=== PATIENT | male | born 1955 | race African-American/Black ===

== ENCOUNTER 2017-05-10 23:04 | Inpatient (IN) ==
[2017-05-10] MEDS ORDERED: ASPIRIN PO STA (23:24)
[2017-05-10] MEDS ORDERED: DUONEB (A & A) ONE (23:32)
[2017-05-10] MEDS ORDERED: DUONEB (A & A) INH ONE (23:32)
[2017-05-10] MEDS ORDERED: SOLU-MEDROL 0 MG in NS 100 ML IV ONE (23:33)
[2017-05-10 23:38] LABS: MANUAL DIFF NEEDED? NO
[2017-05-10] MEDS ORDERED: SOLU-MEDROL IV ONE (23:39)
[2017-05-10 23:40] LABS: BASO% 1.2 % (0.0-0.8); EOS# 0.59 X1000 (0.0-0.7); EOS% 8.9 % (0.0-10.0); HEMATOCRIT 45.2 % (42.0-52.0); HEMOGLOBIN 15.5 g/dL (14.0-18.0); IMM GRAN# 0.01 X1000 (0.0-0.04); IMM GRAN% 0.2 % (0.0-0.5); LYMPH% 46.8 % (20.5-51.1); MCH 28.4 PG (27-31); MCHC 34.3 g/dL (33-37); MCV 82.8 FL (81-99); MONO# 0.43 X1000 (0.11-0.59); MONO% 6.5 % (1.7-9.3); MPV 10.6 FL (7.4-10.4); NEUT% 36.4 % (42.2-75.2); PLT 303 X1000 (130-400); RBC 5.46 XMIL (4.7-6.1)
[2017-05-10 23:54] LABS: INR 0.86 (0.86-1.15); PROTIME 12.4 Seconds (12.1-15.5)
[2017-05-10 23:55] LABS: PTT PL 27.5 Seconds (22.6-43.9)
[2017-05-11 00:01] LABS: BE 0.3 mmoll (-3.0-3.0); BLOOD TYPE ARTERIAL; DRAW SITE L RADIAL; METHB 1.3 % (0.0-1.5); O2(CT) 19.4 mL/dL (15.0-23.0); PCO2(98.6) 38 mmHg (35-45); PO2(98.6) 60 mmHg (60-100); SAMPLE BLOOD; SAO2 94.8 % (95.0-100.0); THB 15.1 g/dL (11.5-17.4); pH(98.6) 7.42 (7.35-7.45)
[2017-05-11 00:04] LABS: ALLEN TEST YES; MODALITY CANNULA
[2017-05-11 00:07] LABS: AGAP 10; ALBUMIN 4.3 g/dL (3.5-5.0); ALKALINE PHOSPHATASE 105 U/L (32-122); BUN 22 mg/dL (8-22); CALCIUM 9.3 mg/dL (8.8-10.2); CHLORIDE 101 mmol/L (98-107); COSMO 275; GOT 25 U/L (10-34); GPT 19 U/L (10-44); POTASSIUM 3.5 mmol/L (3.5-5.1); SODIUM 136 mmol/L (136-145); TCO2 25 mmol/L (25-35); TOTAL PROTEIN 8.4 g/dL (6.3-8.3)
[2017-05-11 00:11] LABS: CK PROFILE 320 U/L (24-204)
[2017-05-11 00:25] LABS: CK INDEX 1.2 (0.0-2.5); CK-MB 3.97 ng/mL (0.0-5.0)
[2017-05-11] MEDS ORDERED: LEVAQUIN 750 MG/D5W 750 MG/150 ML IVPB IV ONE (00:54)
[2017-05-11] MEDS ORDERED: DUONEB (A & A) INH PRN (03:49)
[2017-05-11] MEDS: DUONEB (A & A) INH SCH ×5 (07:30→23:16)
[2017-05-11] MEDS: PREDNISONE PO SCH (09:13)
[2017-05-11] MEDS: DOXYCYCLINE PO SCH ×2 (09:13→22:46)
[2017-05-11] MEDS ORDERED: SPIRIVA INH SCH (14:00)
[2017-05-11] MEDS ORDERED: ZOCOR PO SCH (21:00)
[2017-05-11] MEDS ORDERED: FLOMAX PO SCH (21:00)
[2017-05-11] MEDS: NORVASC PO SCH (22:45)
[2017-05-11] MEDS: PROSCAR PO SCH (22:45)
[2017-05-11] MEDS: VITAMIN D PO SCH (22:45)
[2017-05-11] MEDS: SINGULAIR PO SCH (22:46)
[2017-05-12] MEDS: DUONEB (A & A) INH SCH ×3 (03:12→11:47)
[2017-05-12 06:20] LABS: MANUAL DIFF NEEDED? NO
[2017-05-12 06:53] LABS: BASO% 0.2 % (0.0-0.8); EOS# 0.05 X1000 (0.0-0.7); EOS% 0.5 % (0.0-10.0); HEMATOCRIT 38.2 % (42.0-52.0); HEMOGLOBIN 13.2 g/dL (14.0-18.0); IMM GRAN# 0.02 X1000 (0.0-0.04); IMM GRAN% 0.2 % (0.0-0.5); LYMPH# 2.51 X1000 (1.2-3.4); LYMPH% 23.6 % (20.5-51.1); MCH 28.9 PG (27-31); MCHC 34.6 g/dL (33-37); MCV 83.6 FL (81-99); MONO# 0.62 X1000 (0.11-0.59); MONO% 5.8 % (1.7-9.3); MPV 10.4 FL (7.4-10.4); NEUT% 69.7 % (42.2-75.2); PLT 274 X1000 (130-400); RBC 4.57 XMIL (4.7-6.1)
[2017-05-12 07:03] LABS: AGAP 14; BUN 19 mg/dL (8-22); CALCIUM 9.2 mg/dL (8.8-10.2); CHLORIDE 103 mmol/L (98-107); COSMO 276; POTASSIUM 3.7 mmol/L (3.5-5.1); SODIUM 136 mmol/L (136-145); TCO2 20 mmol/L (25-35)
[2017-05-12] MEDS: SINGULAIR PO SCH (09:47)
[2017-05-12] MEDS: PREDNISONE PO SCH (09:47)
[2017-05-12] MEDS: VITAMIN D PO SCH (09:47)
[2017-05-12] MEDS: DOXYCYCLINE PO SCH (09:47)
[2017-05-12] MEDS: NORVASC PO SCH (09:47)
[2017-05-12] MEDS: PROSCAR PO SCH (09:47)
[2017-05-12 12:03] VITALS: BP 123/73
== END 2017-05-12 13:30 | disposition home or self-care (01) ==
LOC: P.ED 23:04 → SUATTDRO 05-11 01:53 → P.MEDSURG 05-11 01:53
PROVIDERS: ATTEND Family Medicine

== ENCOUNTER 2019-06-10 09:40 | Inpatient (IN) ==
[2019-06-10] MEDS ORDERED: DUONEB (A & A) INH ONE (09:56)
[2019-06-10 10:12] LABS: BE 2.9 mmoll (-3.0-3.0); BLOOD TYPE ARTERIAL; METHB 1.6 % (0.0-1.5); O2(CT) 19.7 mL/dL (15.0-23.0); O2HB 90.2 % (95.0-99.0); PCO2(98.6) 35 mmHg (35-45); PO2(98.6) 59 mmHg (60-100); SAMPLE BLOOD; SAO2 94.5 % (95.0-100.0); THB 15.6 g/dL (11.5-17.4); pH(98.6) 7.48 (7.35-7.45)
[2019-06-10 10:23] LABS: ALLEN TEST YES; MODALITY CANNULA
--- NOTE | 2019-06-10 10:24 | EKG Report ---
Test Performed on : 06/10/2019 09:59:45 AM Test Reason : cp Blood Pressure : / mmHG Vent. Rate : 081 BPM Atrial Rate : 081 BPM P-R Int : 112 ms QRS Dur : 082 ms QT Int : 362 ms P-R-T Axes : 076 065 -05 degrees QTc Int : 420 ms Sinus rhythm. with premature supraventricular complexes. Possible Left atrial enlargement Nonspecific ST and T wave abnormality Abnormal ECG When compared with ECG of 17-JAN-2019 08:13, premature supraventricular complexes. are now present ST no longer elevated in Anterior leads Nonspecific T wave abnormality, worse in Inferior leads Unconfirmed Result
--- NOTE | 2019-06-10 10:25 | Diag Imaging Result Doc PS360 ---
EXAM: CHEST-1 VIEW - 06/10/2019 HISTORY: cp TECHNIQUE: Portable chest COMPARISON: 01/17/2019 FINDINGS: Heart size is normal. There is some tortuosity of the thoracic aorta similar to prior. There is mild subsegmental atelectasis at the lung bases. Lungs otherwise appear essentially clear. There is no pleural effusion or pneumothorax identified. IMPRESSION: Mild basilar subsegmental atelectasis. No other evidence of acute disease. Electronically signed by Joaquin Swanson 06/10/2019 10:22 AM
[2019-06-10 10:39] LABS: INR 0.88; PROTIME 12.4 Seconds (11.0-16.0)
[2019-06-10 10:40] LABS: PTT 35.4 Seconds (22.3-41.8)
[2019-06-10 10:47] LABS: AGAP 10; ALBUMIN 4.6 g/dL (3.5-5.0); ALKALINE PHOSPHATASE 97 U/L (32-122); BUN 14 mg/dL (8-22); CHLORIDE 103 mmol/L (98-107); COSMO 277; CREATININE 0.7 mg/dL (0.7-1.2); ESTIMATED GFR > 60; GLUCOSE 142 mg/dL (70-104); GOT 17 U/L (10-34); GPT 16 U/L (10-44); POTASSIUM 3.7 mmol/L (3.5-5.1); SODIUM 137 mmol/L (136-145); TCO2 25 mmol/L (25-35)
[2019-06-10 11:10] LABS: BASO# 0.07 X1000 (0.0-0.2); BASO% 1.1 % (0.0-0.8); EOS# 0.64 X1000 (0.0-0.7); HEMATOCRIT 44.9 % (42.0-52.0); HEMOGLOBIN 14.9 g/dL (14.0-18.0); IMM GRAN# 0.01 X1000 (0.0-0.04); IMM GRAN% 0.2 % (0.0-0.5); LYMPH% 29.5 % (20.5-51.1); MCH 27.5 PG (27-31); MCHC 33.2 g/dL (33-37); MCV 82.8 FL (81-99); MONO# 0.36 X1000 (0.11-0.59); MONO% 5.6 % (1.7-9.3); MPV 10.5 FL (7.4-10.4); NEUT# 3.45 X1000 (1.4-6.5); NEUT% 53.6 % (42.2-75.2); PLT 321 X1000 (130-400); RBC 5.42 XMIL (4.7-6.1); RDW 13.6 % (11.5-14.5); WBC 6.43 X1000 (4.8-10.8)
--- NOTE | 2019-06-10 11:58 | PROVIDER DOCUMENTATION ---
This chart was entered by Rodger Srivastava Scribe, acting as scribe for Naeem Ware MD. HPI-Respiratory General - General Chief Complaint: Shortness of Breath Stated Complaint: CP SOB Time Seen by Provider: 06/10/19 09:43 Source: patient Allergies/Adverse Reactions: Patient Allergies Allergy/AdvReac Type Severity Reaction Status Date / Time Latex, Natural Rubber Allergy RASH Verified 06/10/19 10:20 shrimp Allergy HIVES Verified 06/10/19 10:20 wool Allergy HIVES Verified 06/10/19 10:20 Home Medications: Home Medication List Medication Instructions Recorded Confirmed Last Taken Type Amlodipine Besylate 10 mg PO DAILY 04/18/16 06/10/19 07/21/17 History 10 MG Finasteride [Proscar] 5 mg PO DAILY #30 tablet 05/06/16 06/10/19 07/21/17 Rx 5 MG Tamsulosin [Flomax] 0.4 mg PO QHS #30 capsule 05/06/16 06/10/19 07/21/17 Rx 0.4 MG Albuterol Sulfate [Ventolin Hfa] 1 puff IH BID 10/04/16 06/10/19 07/21/17 Hi story 1 PUFF Cholecalciferol (Vit D3) [Vitamin 1 tab PO DAILY 10/04/16 06/10/19 07/21/17 His tory D3] 1 TAB Montelukast Sodium [Singulair] 10 mg PO DAILY 10/04/16 06/10/19 07/21/17 History 10 MG Tiotropium [place] Inhaler 18 mcg IH DAILY 10/04/16 06/10/19 07/21/17 History [Spiriva] 18 MCG Acetaminophen with Codeine 1 ea PO Q8H PRN PRN #15 tab 03/03/18 06/10/19 Unknown Rx [Tylenol with Codeine #3] Budesonide/Formoterol Fumarate 10.2 gm IH BID #1 hfa.aer.ad 05/31/18 06/10/19 Unknown Rx [Symbicort 160-4.5 Mcg Inhaler] Gabapentin 300 mg PO HS 06/10/19 06/10/19 Unknown History - History of Present Illness-Resp Nature of Presenting Problem: Pt is a 63 yom who presents to the ED with a CC of shortness of breath. Pt reports he has been short of breath for approximately one week. Pt reports he uses breathing treatments at home and states he used one this morning with no relief of his symptoms. Pt also complains of chest pain and states it radiates down the left side of his body. Pt reports a hx of HTN and COPD. Pt states his symptoms worsen when the weather changes. Upon examination the pt had bilateral wheezing. Quality of Pain: reports: stabbing Severity in ED: reports: mild Onset/Duration: reports: 1 week ago Timing: reports: still present Cough Quality/Degree: reports: mild Episode Frequency: occasional episodes Current Respiratory Medication Therapy: Initiated see nurses note Associated Symptoms: reports: chest pain/soreness, cough, shortness of breath, wheezing Similar Symptoms Previously?: Yes Recently seen or treated by another doctor?: No Review of Systems - Adult - REVIEW OF SYSTEMS - ADULT Constitutional: reports: see HPI Eyes: reports: no symptoms reported Ears, Nose, Mouth & Throat: reports: no symptoms reported Cardiovascular: reports: see HPI, chest pain Respiratory: reports: see HPI, cough, shortness of breath, wheezing Gastrointestinal: reports: no symptoms reported Genitourinary: reports: no symptoms reported Musculoskeletal: reports: see HPI Integumentary: reports: no symptoms reported Neurological: reports: no symptoms reported Psychiatric: reports: no symptoms reported Endocrine: reports: no symptoms reported Hematologic/Lymphatic: reports: no symptoms reported Allergic/Immunologic: reports: no symptoms reported All Other Systems: Reviewed and Negative Past History - Adult - PAST MEDICAL HISTORY-ADULT Review of Records: reports: Old Records Reviewed, Nursing Assessment Review, Medications Reviewed, Social history reviewed & non-contributory. Major Childhood Illnesses: reports: denies history Cardiovascular: reports: HTN, hyperlipidemia Respiratory: reports: asthma, COPD Gastrointestinal: reports: cancer (prostate/colon) Obstetrical/Gynecological: reports: denies history Genitourinary: reports: denies history Musculoskeletal: reports: denies history Neurological: reports: denies history Psychiatric: reports: denies history Endocrine/Immune: reports: Diabetes Other Conditions: reports: denies history - PRIOR SURGERIES/PROCEDURES Surgical/Procedure History: reports: other (TURB/R elbow) - IMMUNIZATION STATUS Childhood Immunizations: See Nurse Assessment Flu Vaccine: See Nurse Assessment - FAMILY HISTORY Family History: reviewed, not pertinent - SOCIAL HISTORY Smoking: non-smoker, quit greater than 1 year Substance Use: alcohol Alcohol Use Frequency: occasionally Physical Exam-General - PHYSICAL EXAM-ADULT Initial Vital Signs Reviewed: Yes - CONSTITUTIONAL General Appearance: alert, mild distress - EYES Eyes: PERRL/EOMI - HEAD, EARS, NOSE, MOUTH & THROAT HENMT: moist mucous membranes - NECK Neck: non-tender, full range of motion - RESPIRATORY Respiratory: chest non-tender, no accessory muscle use, wheezing (Bilaterally), decreased rate - CARDIOVASCULAR Cardiovascular: normal peripheral pulses, regular rate, rhythm, no edema - GASTROINTESTINAL (ABDOMEN) Abdominal Exam: non tender, soft - MUSCULOSKELETAL Extremity: normal range of motion, non-tender - SKIN Integumentary: normal color, warm/dry - NEUROLOGIC Neurologic: grossly normal, no motor/sensory deficits - PSYCHIATRIC Psych/Mental Status: normal mood/affect, normal thought content, normal thought process, oriented x 3 - HEART Score HEART Score: History: Slightly Suspicious HEART Score: ECG: Non-Specific Repolarization Disturbance/LBBB/PM HEART Score: Age: 45-65 Years HEART Score: Risk Factors for Atherosclerotic Disease: 1 or 2 Risk Factors HEART Score: Troponin: < or = Normal Limit Total HEART Score:: 3 Progress - PLAN OF CARE/RESULTS Progress/Plan/Lab Results: Vital Signs - 8 hr 06/10/19 09:43 06/10/19 10:28 06/10/19 10:34 Temperature 98 F Pulse Rate 83 75 78 Respiratory Rate 20 17 24 Blood Pressure 152/85 O2 Sat by Pulse Oximetry 93 L 95 93 L 06/10/19 11:38 Temperature Pulse Rate 77 Respiratory Rate 20 Blood Pressure 170/101 O2 Sat by Pulse Oximetry 98 Laboratory Results - last 24 hr 06/10/19 06/10/19 06/10/19 09:50 10:05 10:05 WBC 6.43 RBC 5.42 Hgb 14.9 Hct 44.9 MCV 82.8 MCH 27.5 MCHC 33.2 RDW Std Deviation 13.6 Plt Count 321 MPV 10.5 H Immature Gran % (Auto) 0.2 Neut % (Auto) 53.6 Lymph % (Auto) 29.5 [place] % (Auto) 5.6 Eos % (Auto) 10.0 Baso % (Auto) 1.1 H Immature Gran # (Auto) 0.01 Neut # (Auto) 3.45 Lymph # (Auto) 1.90 [place] # (Auto) 0.36 Eos # (Auto) 0.64 Baso # (Auto) 0.07 PT INR PTT (Actin FS) Specimen Type ARTERIAL Sample Site R RADIAL pH 7.48 H pCO2 35 pO2 59 L HCO3 27.0 H Base Excess 2.9 Oxyhemoglobin 90.2 L ABG O2 Sat (Calculated) 19.7 ABG O2 Saturation 94.5 L ABG Carboxyhemoglobin 3.10 H ABG Methemoglobin 1.6 H Eduardo Test YES A-a O2 Difference 125.0 Total Hemoglobin 15.6 Lactate 1.10 Liter Flow 3.0 Blood Gas Modality CANNULA FiO2 % 32.0 Sodium Potassium Chloride Carbon Dioxide Anion Gap BUN Creatinine Estimated GFR/1.73 m2 BUN/Creatinine Ratio Glucose Calculated Osmolality Calcium Total Bilirubin AST ALT Alkaline Phosphatase Troponin T < 0.010 [id number]-Pcrmceokkdx Pept Total Protein Albumin Globulin Albumin/Globulin Ratio 06/10/19 06/10/19 06/10/19 10:05 10:05 10:05 WBC RBC Hgb Hct MCV MCH MCHC RDW Std Deviation Plt Count MPV Immature Gran % (Auto) Neut % (Auto) Lymph % (Auto) [place] % (Auto) Eos % (Auto) Baso % (Auto) Immature Gran # (Auto) Neut # (Auto) Lymph # (Auto) [place] # (Auto) Eos # (Auto) Baso # (Auto) PT 12.4 INR 0.88 PTT (Actin FS) 35.4 Specimen Type Sample Site pH pCO2 pO2 HCO3 Base Excess Oxyhemoglobin ABG O2 Sat (Calculated) ABG O2 Saturation ABG Carboxyhemoglobin ABG Methemoglobin Eduardo Test A-a O2 Difference Total Hemoglobin Lactate Liter Flow Blood Gas Modality FiO2 % Sodium 137 Potassium 3.7 Chloride 103 Carbon Dioxide 25 Anion Gap 10 BUN 14 Creatinine 0.7 Estimated GFR/1.73 m2 > 60 BUN/Creatinine Ratio 20 Glucose 142 H Calculated Osmolality 277 Calcium 10.0 Total Bilirubin 0.40 AST 17 ALT 16 Alkaline Phosphatase 97 Troponin T Ohm-K-Jqknnxefaxk Pept 74 Total Protein 7.0 Albumin 4.6 Globulin 2.0 Albumin/Globulin Ratio 2.0 Orders Category Date Time Status Cardiac Monitoring DIRECTED Care 06/10/19 10:24 Active Nursing- Obtain EKG ONCE Care 06/10/19 09:45 Active Oxygen Therapy- ED Nursing DIRECTED Care 06/10/19 10:24 Active Saline Loc NOW Care 06/10/19 10:01 Active CHEST-1 VIEW [RAD] Stat Exams 06/10/19 09:45 Completed ABG [RESP] Routine Lab 06/10/19 09:50 Completed CBC WITH ELECTRONIC DIFF [HEME] Stat Lab 06/10/19 10:05 Completed COMPREHENSIVE METABOLIC PANEL [CHEM] Stat Lab 06/10/19 10:05 Completed PRO B-NATRIURETIC PEPTIDE Stat Lab 06/10/19 10:05 Completed PT [PROTIME WITH INR] [COAG] Stat Lab 06/10/19 10:05 Completed PTT [COAG] Stat Lab 06/10/19 10:05 Completed TROPONIN T Stat Lab 06/10/19 10:05 Completed Albuterol 2.5MG/Ipratrop 0.5MG [Duoneb (A & A)] Med 06/10/19 09:56 Discontinued 3 ml INH NOW ONE Aerosol Treatments Routine Oth 06/10/19 09:56 Completed Aerosol Treatments Stat Oth 06/10/19 09:56 Completed EKG [EKG] Stat Ther 06/10/19 09:45 Draft Result Diagrams: 06/10/19 10:05 06/10/19 10:05 - EKG 1 Time of EKG reading by physician:: 09:59 EKG Read and Signed by:: Naeem Ware EKG Interpretation (*Must complete 3 of following elements*): Abnormal (Sinus rhythm with premature supraventricular complexes; Possible left atrial enlargement; Nonspecific ST and T wave abnormality) Rate: 81 Rhythm: Sinus rhythm with premature supraventricular complexes [place]: normal QRS: normal [place] Interval: normal ST Wave: non-specific ST changes - XRAY 1 XRAY: Bilateral XRAY Study: Chest Impression: See EMR Report ( EXAM: CHEST-1 VIEW - 06/10/2019 HISTORY: cp TECHNIQUE: Portable chest COMPARISON: 01/17/2019 FINDINGS: Heart size is normal. There is some tortuosity of the thoracic aorta similar to prior. There is mild subsegmental atelectasis at the lung bases. Lungs otherwise appear essentially clear. There is no pleural effusion or pneumothorax identified. IMPRESSION: Mild basilar subsegmental atelectasis. No other evidence of acute disease. Electronically signed by Joaquin Swanson 06/10/2019 10:22 AM 06/10/19 1022 Interpreting Physician: Joaquin Swanson MD Dictated Date/Time: 06/10/19 1021 cc: Naeem Ware MD; None,PCP) - CONSULTS/PCP/HOSPITALIST Notification #1 *Consult/PCP/Hospitalist*: Dr. Gruber Time Discussed: 11:50 Reason/Comments: Made aware of pt and states he will see pt in ED Consult Disposition: Will see in ED, Admit Departure - Departure Date of Disposition Decision: 06/10/19 Time of Disposition Decision: 11:56 DIAGNOSIS: COPD exacerbation, Chest pain, Hypoxia Disposition: ADMITTED INPATIENT 09 Certified Medical Emergency: Emergent Condition: Fair Additional Instructions: ED Follow Up Instructions: You have been treated by a care provider in the Emergency Department. These in structions are being provided to you so you can have an understanding of how to care for yourself upon discharge. Upon discharge from the Emergency Department, you are responsible for making arrangements for follow-up care by a physician of your choice. Take all prescribed medications as directed. Return to the Emergency Department immediately for any new or worsening symptoms. You may call the Physician Referral phone number at [phone] to obtain a list of Physicians who are taking new patients. Referrals and Follow-Ups: None,PCP [Primary Care Provider] - - Critical Care Note This patient required my direct & personal management of CC.: No Attestation - Physician/ BERRY Attestation Patient care was provided by Advanced Practice Provider:: No The physician spent face to face time with patient:: Yes Advanced Practice Provider documentation review:: Supervising physician onsite and consulted in the evaluation and care of this patient. The physician did have a face to face encounter with the patient. This chart was documented by the indicated scribe, (Rodger Srivastava, Deejay) and accurately reflects the services I performed and decisions made by me, Naeem Ware MD, as attested by the provider's signature.
[2019-06-10] MEDS ORDERED: TYLENOL PO PRN (13:10)
[2019-06-10] MEDS ORDERED: ZOFRAN IV PRN (13:10)
[2019-06-10] MEDS ORDERED: DUONEB (A & A) INH PRN (13:10)
[2019-06-10] MEDS: SOLU-MEDROL IV SCH ×2 (14:16→21:03)
[2019-06-10] MEDS: ROCEPHIN 1 GM in NS 50 ML IV SCH (14:19)
[2019-06-10] MEDS: DUONEB (A & A) INH SCH ×3 (15:01→23:58)
[2019-06-10] MEDS ORDERED: MORPHINE IV ONE (15:02)
[2019-06-10] MEDS ORDERED: FLU VACCINE IM ONE (17:00)
--- NOTE | 2019-06-10 18:02 | HISTORY AND PHYSICAL ---
CHIEF COMPLAINT: Shortness of breath, chest pain. HISTORY OF PRESENT ILLNESS: This is a 63-year-old gentleman with a history of COPD, hypertension, and prostate and colon cancer. He presents to the emergency room complaining of shortness of breath for approximately one week that has been unchanged using his home breathing treatments and medications. He also complains of left-sided chest pain that radiates down the whole left side of his body. He states this is chronic for greater than 20 years and that it gets worse when the weather changes. He denied any syncope or dizziness, any palpitations. PAST MEDICAL HISTORY: Hypertension, hyperlipidemia, asthma, COPD, prostate and colon cancer, enlarged prostate. PAST SURGICAL HISTORY: TURP and right elbow surgery. FAMILY HISTORY: He reports hypertension, COPD in his parents. SOCIAL HISTORY: He denies any illicit drug use. He does drink alcohol occasionally. He states he quit smoking in 2008. ALLERGIES: Latex, natural rubber, shrimp, and wool. HOME MEDICATIONS: A list will be obtained by the nursing staff, and once verified, will review and restart as appropriate. REVIEW OF SYSTEMS: Discussed with patient with pertinent positives stated in the HPI. He denied any syncope or dizziness, any palpitations, any nausea, vomiting, diarrhea, constipation, black or bloody vomitus or stools, any hematuria, dysuria, frequency, urgency. PHYSICAL EXAMINATION: GENERAL: This is a 63-year-old gentleman who is sitting up in the bed in no distress. VITAL SIGNS: Blood pressure is 133/88, with heart rate of 78, respirations are 22, temperature is 98.5 degrees, with O2 saturations 98 to 100 percent on 2 L nasal cannula. EYES: Pupils equal, round, react to light. EOMs are intact. Sclerae anicteric. HEENT: Head is normocephalic, atraumatic. Mucous membranes are moist. NECK: Supple with trachea midline. CARDIOVASCULAR: Regular rate and rhythm. S1 and S2 appreciated. Calves are nontender bilaterally. He has no lower extremity edema, with peripheral pulses palpable x4 extremities. No murmur. PULMONARY: Expiratory wheezes noted bilaterally with prolonged expiration. No increased work of breathing noted. Chest rises and falls symmetric with respiration. GASTROINTESTINAL: Abdomen is soft, nontender, nondistended. Bowel sounds in all 4 quadrants. GENITOURINARY: No CVA or suprapubic tenderness. NEUROLOGIC: He is alert and oriented x3. SKIN: Warm and dry. LABORATORY AND DIAGNOSTIC DATA: WBC is 6.4 with hemoglobin 14.9, hematocrit 44.9, and platelets of 321,000. Sodium is 137, potassium 3.7, BUN 14, creatinine 0.7 with a glucose of 142. Troponin is less than 0.010. ABGs, pH is 7.48 with CO2 of 35, PO2 of 59, and bicarbonate 27. This is on 3 L nasal cannula. Sputum culture is pending. Chest x-ray reveals mild basilar subsegmental atelectasis with no evidence of acute disease. ASSESSMENT: 1. Chronic obstructive pulmonary disease, acute on chronic exacerbation. 2. Chest pain. 3. Hypoxemia. 4. History of prostate and colon cancer. PLAN: The patient will be admitted to ICU, placed on telemetry for close monitoring. We will identify his home medications and continue these as appropriate. We will continue to trend cardiac enzymes, cardiac profile and troponin, repeat a CBC, CMP in the morning. Start DuoNeb q.4 hours and q.2 hours p.r.n., peak flow b.i.d. Incentive spirometer q.4 hours. For antibiotic coverage, Rocephin. Further antibiotics will be culture driven. Steroids to taper. Plan was discussed with Dr. Gruber. Further treatments pending hospital course. Dictated by IMER Duran for Cb Gruber MD cc: IMER Duran MD
[2019-06-10] MEDS ORDERED: MORPHINE IV PRN (19:01)
[2019-06-10] MEDS: SYMBICORT 160/4.5 MICROGM INHALER INH SCH (19:02)
[2019-06-10] MEDS: FLOMAX PO SCH (20:02)
[2019-06-10] MEDS: NEURONTIN PO SCH (20:02)
[2019-06-10] MEDS ORDERED: VENTOLIN HFA INH SCH (21:00)
--- NOTE | 2019-06-10 23:46 | HISTORY AND PHYSICAL ---
ADDENDUM: Patient seen and examined by myself. Full note dictated and discussed with nurse practitioner. Patient presented to the hospital with increased cough, congestion, increased shortness of breath. Notes he has had increased work of breathing for the past week or so. Symptoms continued to worsen. Therefore, he finally came to the ER. In the ER, he was noted to have blood pressure of 170/101. We are going to admit him to the hospital, place him in the ICU with a COPD exacerbation and follow. cc: Cb Gruber MD
[2019-06-11 05:10] LABS: HEMATOCRIT 43.5 % (42.0-52.0); HEMOGLOBIN 14.4 g/dL (14.0-18.0); MCH 27.4 PG (27-31); MCHC 33.1 g/dL (33-37); MCV 82.7 FL (81-99); MPV 10.7 FL (7.4-10.4); RBC 5.26 XMIL (4.7-6.1); RDW 13.5 % (11.5-14.5); WBC 5.96 X1000 (4.8-10.8)
[2019-06-11] MEDS: DUONEB (A & A) INH SCH ×6 (05:13→23:00)
[2019-06-11 05:38] LABS: AGAP 13; ALBUMIN 4.4 g/dL (3.5-5.0); ALKALINE PHOSPHATASE 89 U/L (32-122); BUN 25 mg/dL (8-22); CALCIUM 9.8 mg/dL (8.8-10.2); CHLORIDE 105 mmol/L (98-107); COSMO 281; CREATININE 1.2 mg/dL (0.7-1.2); ESTIMATED GFR > 60; GLUCOSE 150 mg/dL (70-104); GOT 13 U/L (10-34); GPT 15 U/L (10-44); SODIUM 137 mmol/L (136-145); TCO2 19 mmol/L (25-35); TOTAL PROTEIN 7.3 g/dL (6.3-8.3)
[2019-06-11] MEDS: SOLU-MEDROL IV SCH ×3 (06:37→22:15)
[2019-06-11] MEDS: SYMBICORT 160/4.5 MICROGM INHALER INH SCH ×2 (07:48→19:17)
[2019-06-11] MEDS: NORVASC PO SCH (09:25)
[2019-06-11] MEDS: SINGULAIR PO SCH (09:25)
[2019-06-11] MEDS: PROSCAR PO SCH (09:25)
[2019-06-11] MEDS: VITAMIN D PO SCH (09:25)
[2019-06-11] MEDS ORDERED: PNEUMOVAX 23 IM ONE (12:56)
[2019-06-11] MEDS: ROCEPHIN 1 GM in NS 50 ML IV SCH (13:57)
--- NOTE | 2019-06-11 17:21 | PROGRESS NOTE ---
DATE: 06/11/2019 SUBJECTIVE: Patient notes he is feeling tremendously better today than he did yesterday. Denies any fevers or chills. States the cough and shortness of breath have improved. Denies chest pain. PHYSICAL EXAMINATION: Vital Signs: Temperature 98.6 degrees, pulse 74, respiratory 20, and BP 120/64. General: Patient is in no current respiratory distress and much improved than he was yesterday. He is sitting calmly in the bed. HEENT: Normocephalic. Neck: Supple. Cardiovascular: Regular rate. No appreciable murmurs. Chest: Decreased breath sounds bilaterally but equal. Minimal if any labored breathing currently although he is sitting up resting in the bed. He does have mild wheezing which is much improved from yesterday's exam. Abdomen: Soft and nondistended. Extremities: Moves all extremities. Neurologic: No changes. ASSESSMENT: 1. Chronic obstructive pulmonary disease with exacerbation. 2. Acute hypoxic respiratory failure. 3. Chest pain. 4. History of prostate cancer. 5. History of colon cancer. PLAN: We will continue patient in hospital. Continue breathing treatments, steroids, oxygen, and antibiotics. We will follow. cc: Cb Gruber MD
[2019-06-11] MEDS: NEURONTIN PO SCH (20:00)
[2019-06-11] MEDS: FLOMAX PO SCH (20:00)
[2019-06-12] MEDS: DUONEB (A & A) INH SCH ×6 (04:00→23:37)
[2019-06-12] MEDS: SOLU-MEDROL IV SCH ×3 (06:55→21:42)
[2019-06-12] MEDS: SYMBICORT 160/4.5 MICROGM INHALER INH SCH ×2 (07:50→19:21)
[2019-06-12] MEDS: SINGULAIR PO SCH (09:42)
[2019-06-12] MEDS: NORVASC PO SCH (09:42)
[2019-06-12] MEDS: PROSCAR PO SCH (09:42)
[2019-06-12] MEDS: VITAMIN D PO SCH (09:42)
--- NOTE | 2019-06-12 12:26 | PROGRESS NOTE ---
DATE: 06/12/2019 SUBJECTIVE: Patient denies having any acute complaints today and feels better. OBJECTIVE: Vital Signs: Temperature 97.6 degrees, pulse 77 per minute, respiratory rate 16 per minute, blood pressure 134/72, pulse oximetry 96% on 2 L of oxygen via nasal cannula. General: Patient is alert and oriented x3. He does not appear to be in any acute distress. Cardiovascular System: First and second heart sounds are audible without any murmurs or gallops. Respiratory System: Bilateral lung air entry is moderately decreased but there are no rales or rhonchi present on auscultation. Gastrointestinal system: Abdomen is soft and nondistended. Normal bowel sounds are present. Musculoskeletal System: No deformities are present. DIAGNOSTIC DATA: No new diagnostic data has been done this morning. IMPRESSION: 1. Acute hypoxemic respiratory failure secondary to acute chronic obstructive pulmonary disease exacerbation. 2. Hypertension. PLAN: The patient has been getting IV Solu-Medrol along with ceftriaxone and bronchodilator treatments via nebulization. His overall condition has improved and therefore I am going to move him out of intensive care unit to the regular med/surg floor. He will continue to get amlodipine 10 mg orally once daily for his blood pressure control. I am going to decrease the dose of Solu- Medrol to 40 mg IV q.12 since he does not have any wheezing anymore and continue with other medications. Further recommendations will be given as per hospital course. cc: Jovan Wilkinson MD
[2019-06-12] MEDS: ROCEPHIN 1 GM in NS 50 ML IV SCH (13:34)
[2019-06-12] MEDS: FLOMAX PO SCH (20:52)
[2019-06-12] MEDS: NEURONTIN PO SCH (20:52)
[2019-06-13] MEDS: DUONEB (A & A) INH SCH ×6 (04:33→23:28)
[2019-06-13] MEDS: SOLU-MEDROL IV SCH (05:08)
[2019-06-13 06:05] LABS: BLOOD TYPE ARTERIAL; HCO3-(ACT) 24.1 mmoll (20.0-26.0); METHB 1.5 % (0.0-1.5); PCO2(98.6) 38 mmHg (35-45); PO2(98.6) 92 mmHg (60-100); SAMPLE BLOOD; SAO2 98.3 % (95.0-100.0); THB 14.2 g/dL (11.5-17.4)
[2019-06-13 06:06] LABS: ALLEN TEST YES; MODALITY CANNULA
[2019-06-13 07:10] LABS: BASO# 0.01 X1000 (0.0-0.2); HEMATOCRIT 41.4 % (42.0-52.0); HEMOGLOBIN 13.4 g/dL (14.0-18.0); IMM GRAN% 0.4 % (0.0-0.5); LYMPH# 0.81 X1000 (1.2-3.4); LYMPH% 3.2 % (20.5-51.1); MCH 27.5 PG (27-31); MCHC 32.4 g/dL (33-37); MCV 84.8 FL (81-99); MONO# 0.54 X1000 (0.11-0.59); MONO% 2.1 % (1.7-9.3); MPV 11.3 FL (7.4-10.4); NEUT# 23.99 X1000 (1.4-6.5); NEUT% 94.3 % (42.2-75.2); PLT 316 X1000 (130-400); RBC 4.88 XMIL (4.7-6.1); RDW 13.8 % (11.5-14.5); WBC 25.45 X1000 (4.8-10.8)
[2019-06-13 07:23] LABS: AGAP 11; BUN 27 mg/dL (8-22); CALCIUM 9.5 mg/dL (8.8-10.2); CHLORIDE 106 mmol/L (98-107); COSMO 289; ESTIMATED GFR > 60; GLUCOSE 247 mg/dL (70-104); POTASSIUM 4.3 mmol/L (3.5-5.1); SODIUM 138 mmol/L (136-145); TCO2 22 mmol/L (25-35)
[2019-06-13] MEDS: SYMBICORT 160/4.5 MICROGM INHALER INH SCH ×2 (07:26→19:14)
[2019-06-13] MEDS: PROSCAR PO SCH (08:15)
[2019-06-13] MEDS: NORVASC PO SCH (08:15)
[2019-06-13] MEDS: VITAMIN D PO SCH (08:15)
[2019-06-13] MEDS: SINGULAIR PO SCH (08:15)
[2019-06-13 08:49] LABS: BASO# 0.01 X1000 (0.0-0.2); HEMATOCRIT 41.4 % (42.0-52.0); HEMOGLOBIN 13.5 g/dL (14.0-18.0); IMM GRAN# 0.09 X1000 (0.0-0.04); IMM GRAN% 0.4 % (0.0-0.5); LYMPH# 0.53 X1000 (1.2-3.4); LYMPH% 2.2 % (20.5-51.1); MCH 27.6 PG (27-31); MCHC 32.6 g/dL (33-37); MCV 84.5 FL (81-99); MONO# 0.43 X1000 (0.11-0.59); MONO% 1.8 % (1.7-9.3); MPV 10.5 FL (7.4-10.4); NEUT# 23.21 X1000 (1.4-6.5); NEUT% 95.6 % (42.2-75.2); PLT 321 X1000 (130-400); RDW 13.9 % (11.5-14.5); WBC 24.27 X1000 (4.8-10.8)
--- NOTE | 2019-06-13 10:01 | PROGRESS NOTE ---
DATE: 06/13/2019 SUBJECTIVE: The patient complains of having cough and chest congestion. He denies having any other complaints. OBJECTIVE: Vital Signs: Temperature 98.4 degrees, pulse 82 per minute, respiratory rate 16 per minute, blood pressure 145/74, pulse oximetry 98% on 2 L of oxygen via nasal cannula. General: Patient is alert and oriented x3. Does not appear to be in any acute distress. Cardiovascular System: First and second heart sounds are audible without any murmurs or gallops. Respiratory System: Bilateral lung air entry is moderately decreased, but there are no rales or rhonchi present on auscultation. Gastrointestinal system: Abdomen is soft and nondistended. Normal bowel sounds are present. DIAGNOSTIC DATA: CBC shows WBC count of 24.27, hemoglobin 13.5, hematocrit 41.4, and platelet count of 321,000. Neutrophils were 95.6%. In comparison, his white blood cell count was 5.96 two days ago on 06/11/2019. Basic metabolic panel done this morning is showing glucose level of 247. Rest of the BMP is nondiagnostic. Arterial blood gases were normal this morning with pH of 7.40, pCO2 38, and PO2 92 on 2 L of oxygen via nasal cannula. IMPRESSION: 1. Acute chronic obstructive pulmonary disease exacerbation with acute hypoxemic respiratory failure that has now improved. 2. Leukocytosis of uncertain etiology, which could be secondary to the Solu-Medrol that the patient has been getting. 3. Hypertension. PLAN: The patient's overall condition has improved, although he has developed significant leukocytosis. He has been getting methylprednisolone intravenously which could be responsible for his leukocytosis. Since he is not having any wheezing or respiratory distress, I am going to discontinue methylprednisolone at this time. He does have leukocytosis, and therefore, I am going to continue with ceftriaxone at this time. We are going to repeat chest x-ray this morning for reevaluation of his pulmonary status. His blood pressure has been within normal range, and therefore, we are going to continue with amlodipine 10 mg orally once daily. Further recommendations will be given as per outcome of these measures. cc: Jovan Wilkinson MD
[2019-06-13 11:11] LABS: ANISOCYTOSIS 1+; LYMPHS 2 % (21-51); MONO 3 % (1-9); SEGS 95 % (42-75)
[2019-06-13] MEDS: ROCEPHIN 1 GM in NS 50 ML IV SCH (13:34)
--- NOTE | 2019-06-13 15:53 | Diag Imaging Result Doc PS360 ---
EXAM: CHEST-PORTABLE - 06/13/2019 HISTORY: Leukocytosis; Dyspnea TECHNIQUE: Portable chest COMPARISON: 06/10/2019 FINDINGS: Heart size appears within normal limits. There is some tortuosity of the thoracic aorta. The lungs appear clear. There is no pleural effusion or pneumothorax identified. IMPRESSION: No evidence of acute disease. Electronically signed by Joaquin Swanson 06/13/2019 3:51 PM
[2019-06-13] MEDS: NEURONTIN PO SCH (21:24)
[2019-06-13] MEDS: FLOMAX PO SCH (21:24)
[2019-06-14] MEDS: DUONEB (A & A) INH SCH ×6 (04:16→22:51)
[2019-06-14 06:30] LABS: BASO# 0.01 X1000 (0.0-0.2); BASO% 0.1 % (0.0-0.8); EOS# 0.02 X1000 (0.0-0.7); EOS% 0.1 % (0.0-10.0); HEMOGLOBIN 12.8 g/dL (14.0-18.0); IMM GRAN# 0.06 X1000 (0.0-0.04); IMM GRAN% 0.4 % (0.0-0.5); LYMPH# 2.76 X1000 (1.2-3.4); LYMPH% 17.4 % (20.5-51.1); MCH 27.2 PG (27-31); MCV 84.9 FL (81-99); MONO# 0.93 X1000 (0.11-0.59); MONO% 5.9 % (1.7-9.3); MPV 11.1 FL (7.4-10.4); NEUT# 12.05 X1000 (1.4-6.5); NEUT% 76.1 % (42.2-75.2); PLT 281 X1000 (130-400); RBC 4.71 XMIL (4.7-6.1); RDW 13.6 % (11.5-14.5); WBC 15.83 X1000 (4.8-10.8)
[2019-06-14 07:01] LABS: AGAP 22; BUN 19 mg/dL (8-22); CALCIUM 9.4 mg/dL (8.8-10.2); CHLORIDE 104 mmol/L (98-107); COSMO 305; CREATININE 0.9 mg/dL (0.7-1.2); ESTIMATED GFR > 60; GLUCOSE 121 mg/dL (70-104); POTASSIUM 3.7 mmol/L (3.5-5.1); SODIUM 152 mmol/L (136-145); TCO2 26 mmol/L (25-35)
[2019-06-14] MEDS: SYMBICORT 160/4.5 MICROGM INHALER INH SCH ×2 (08:27→19:21)
[2019-06-14] MEDS: PROSCAR PO SCH (08:33)
[2019-06-14] MEDS: NORVASC PO SCH (08:33)
[2019-06-14] MEDS: VITAMIN D PO SCH (08:33)
[2019-06-14] MEDS: SINGULAIR PO SCH (08:33)
[2019-06-14] MEDS: ROCEPHIN 1 GM in NS 50 ML IV SCH (14:38)
[2019-06-14] MEDS: FLOMAX PO SCH (21:06)
[2019-06-14] MEDS: NEURONTIN PO SCH (21:06)
--- NOTE | 2019-06-14 22:49 | PROGRESS NOTE ---
DATE: 06/14/2019 SUBJECTIVE: Patient notes that overall he is feeling better, still having some cough and congestion. OBJECTIVE: Vital signs: Temperature 98, pulse 84, respiratory rate 18, BP 145/74. General: Patient is awake, alert. He is in no current respiratory distress. HEENT: Normocephalic. Neck: Supple. Cardiovascular: Regular rate. Chest: Clear, nonlabored. Abdomen: Soft, nondistended, nontender. Extremities: Moves all extremities. Neurologic: No changes. ASSESSMENT: 1. Chronic obstructive pulmonary disease with exacerbation. 2. Acute hypoxic respiratory failure. 3. Leukocytosis, improved. White count is decreased from 24 down to 15. 4. Hypertension. PLAN: The patient has improved, although he is still too weak to discharge home today. Hopefully, his breathing will continue to improve. Blood pressures are better, and his steroids were stopped yesterday. His white count has improved. If he continues to improve, he can be discharged home over the next day or two. cc: Cb Gruber MD
[2019-06-15] MEDS: DUONEB (A & A) INH SCH ×4 (03:51→15:55)
[2019-06-15] MEDS: SYMBICORT 160/4.5 MICROGM INHALER INH SCH (08:10)
[2019-06-15] MEDS: SINGULAIR PO SCH (09:13)
[2019-06-15] MEDS: NORVASC PO SCH (09:13)
[2019-06-15] MEDS: VITAMIN D PO SCH (09:14)
[2019-06-15] MEDS: PROSCAR PO SCH (09:14)
[2019-06-15 11:55] VITALS: BP 126/78
[2019-06-15 13:00] LABS: BASO# 0.02 X1000 (0.0-0.2); BASO% 0.2 % (0.0-0.8); EOS# 0.44 X1000 (0.0-0.7); EOS% 4.3 % (0.0-10.0); HEMATOCRIT 41.3 % (42.0-52.0); HEMOGLOBIN 13.5 g/dL (14.0-18.0); LYMPH% 26.3 % (20.5-51.1); MCH 27.8 PG (27-31); MCHC 32.7 g/dL (33-37); MCV 85.2 FL (81-99); MONO# 0.85 X1000 (0.11-0.59); MONO% 8.3 % (1.7-9.3); MPV 10.8 FL (7.4-10.4); NEUT# 6.16 X1000 (1.4-6.5); NEUT% 59.9 % (42.2-75.2); PLT 286 X1000 (130-400); RBC 4.85 XMIL (4.7-6.1); RDW 13.5 % (11.5-14.5); WBC 10.27 X1000 (4.8-10.8)
[2019-06-15 13:24] LABS: AGAP 12; BUN 17 mg/dL (8-22); CALCIUM 9.2 mg/dL (8.8-10.2); CHLORIDE 104 mmol/L (98-107); COSMO 287; CREATININE 0.9 mg/dL (0.7-1.2); ESTIMATED GFR > 60; GLUCOSE 207 mg/dL (70-104); POTASSIUM 3.6 mmol/L (3.5-5.1); SODIUM 140 mmol/L (136-145); TCO2 24 mmol/L (25-35)
[2019-06-15] MEDS: ROCEPHIN 1 GM in NS 50 ML IV SCH ×2 (13:36→13:57)
--- NOTE | 2019-06-15 15:39 | DISCHARGE SUMMARY ---
ADMISSION DATE: 06/10/2019 DISCHARGE DATE: 06/15/2019 ADMISSION DIAGNOSIS: 1. COPD exacerbation. 2. Chest pain. 3. Hypoxemia. 4. History of prostate cancer and colon cancer. 5. COPD exacerbation. 6. Acute hypoxemic respiratory failure. 7. Leukocytosis, improving. 8. Hypertension. CONSULTATIONS: None. SURGERIES AND PROCEDURES: None. HOSPITAL COURSE: On 06/10/2019, Mr. Beto Velasquez is a 63-year-old male presented with a history of COPD, currently in exacerbation. Apparently had been having shortness of breath for at least one week and would not improve despite using home respiratory treatments and medications. Also had some complaints of left-sided chest pain that radiated down the whole left side of his body, which is a chronic complaint he has had for at least 20+ years, mostly with weather changing. He denied syncope, dizziness, or palpitations. He was placed in ICU, started on DuoNeb every 4 hours, incentive spirometer, Rocephin, steroids. Cultures obtained and sputum was negative. He had oxygen supplementation. He continued here with steroids, oxygen, breathing treatments, antibiotics and steroids were weaned. Chest x-ray was repeated on the and that was no acute disease. No hypoxemia improved. Symptoms improved and will be discharged. He stayed in a little longer just due to the weakness that he had. DISCHARGE VITAL SIGNS: Temperature 98.2 degrees, heart rate 74, respiratory rate 20, blood pressure 126/78, O2 saturation 96% on room air. LAB DATA: White blood cells 10,000, hemoglobin 13, hematocrit 41, platelet count 286,000. Sodium 140, potassium 3.6, BUN 17, creatinine 0.9, glucose 207, calcium 9.2. PERTINENT IMAGING: On 06/10/2019, chest x-ray, mild basilar subsegmental atelectasis. No acute disease. On 06/13/2019, chest x-ray, no acute disease. EKG on the , sinus rhythm with PVCs, rate 81, QTc 420. DISCHARGE MEDICATIONS: 1. Amlodipine besylate 10 mg p.o. daily. 2. Neurontin 300 mg p.o. nightly. 3. Singulair 10 mg p.o. daily. 4. Spiriva 18 mcg inhaled daily. 5. Albuterol 1 puff inhaled twice daily. 6. Vitamin D3, 1000 units p.o. daily. 7. Flomax 0.4 mg p.o. nightly. 8. Levaquin 750 mg p.o. daily for 7 days. 9. Medrol Dosepak. 10. Finasteride 5 mg p.o. daily. 11. Budesonide formoterol fumarate 10.2 g inhaled twice daily. 12. Tylenol #3 with codeine once p.o. every 8 hours p.r.n. DISCHARGE DIET: Regular. DISCHARGE ACTIVITY: As tolerated. PHYSICIAN FOLLOWUPS: Primary care provider within 2 weeks. DISCHARGE INSTRUCTIONS: If your condition changes, contact physician and/or return to the emergency department. Changes may include, but are not limited to shortness of breath, increased fatigue, excessive bleeding, unexplained weight loss or gain, unmanageable pain, signs or symptoms of infection. DISCHARGE DISPOSITION: Home. Dictated by IMER Ferguson for Napoleon Giles MD Addendum: Patient seen and examined by myself. Agree with IMER note. It reflects my assessment and plan. Patient is being discharged in stable condition. Will be seen by his PCP in two weeks. cc: IMER Ferguson MD MTDD
== END 2019-06-15 14:25 | disposition home health service (06) | DRG 190 ==
LOC: P.ED 09:40 → SUATTDRO 13:29 → P.ICU 13:29 → P.MEDSURG 06-12 10:10
PROVIDERS: ATTEND Internal Medicine

== ENCOUNTER 2019-07-03 16:21 | Inpatient (IN) ==
[2019-07-03] MEDS ORDERED: ASPIRIN PO ONE (16:31)
[2019-07-03] MEDS ORDERED: DUONEB (A & A) INH ONE ×2 (16:34→18:26)
[2019-07-03 16:54] LABS: BE 1.5 mmoll (-3.0-3.0); BLOOD TYPE ARTERIAL; HCO3-(ACT) 25.8 mmoll (20.0-26.0); METHB 1.3 % (0.0-1.5); O2(CT) 17.3 mL/dL (15.0-23.0); PCO2(98.6) 34 mmHg (35-45); PO2(98.6) 51 mmHg (60-100); SAMPLE BLOOD; SAO2 91.8 % (95.0-100.0); pH(98.6) 7.47 (7.35-7.45)
[2019-07-03 17:00] LABS: BASO# 0.03 X1000 (0.0-0.2); BASO% 0.5 % (0.0-0.8); EOS# 0.41 X1000 (0.0-0.7); EOS% 6.4 % (0.0-10.0); HEMATOCRIT 40.4 % (42.0-52.0); HEMOGLOBIN 13.2 g/dL (14.0-18.0); IMM GRAN# 0.01 X1000 (0.0-0.04); IMM GRAN% 0.2 % (0.0-0.5); MCH 27.6 PG (27-31); MCHC 32.7 g/dL (33-37); MCV 84.3 FL (81-99); MONO# 0.46 X1000 (0.11-0.59); MONO% 7.2 % (1.7-9.3); MPV 10.3 FL (7.4-10.4); NEUT# 3.71 X1000 (1.4-6.5); NEUT% 57.7 % (42.2-75.2); PLT 285 X1000 (130-400); RBC 4.79 XMIL (4.7-6.1); RDW 13.9 % (11.5-14.5); WBC 6.42 X1000 (4.8-10.8)
[2019-07-03 17:19] LABS: INR 0.88; PROTIME 12.4 Seconds (11.0-16.0)
[2019-07-03 17:20] LABS: PTT 33.2 Seconds (22.3-41.8)
[2019-07-03 17:23] LABS: ALLEN TEST YES; MODALITY CANNULA; O2HB 87.9 % (95.0-99.0)
--- NOTE | 2019-07-03 17:27 | Diag Imaging Result Doc PS360 ---
EXAM: CHEST-2 VIEWS - 07/03/2019 HISTORY: sob TECHNIQUE: Chest two views COMPARISON: 06/13/2019 portable chest FINDINGS: Heart size appears within normal limits. There is tortuosity of the thoracic aorta. There is mild infiltrate at the posterior base of the chest visible on the lateral view. The remainder the lungs appear clear. There is no pleural effusion or pneumothorax identified. IMPRESSION: Mild infiltrate consistent with pneumonia at posterior base of chest. Electronically signed by Joaquin Swanson 07/03/2019 5:25 PM
--- NOTE | 2019-07-03 17:28 | EKG Report ---
Test Performed on : 07/03/2019 4:35:22 PM Test Reason : sob Blood Pressure : / mmHG Vent. Rate : 082 BPM Atrial Rate : 082 BPM P-R Int : 112 ms QRS Dur : 080 ms QT Int : 360 ms P-R-T Axes : 072 050 016 degrees QTc Int : 420 ms Normal sinus rhythm. Possible Left atrial enlargement Nonspecific ST and T wave abnormality Abnormal ECG When compared with ECG of 10-JUN-2019 09:59, (Unconfirmed) premature supraventricular complexes. are no longer present Unconfirmed Result
[2019-07-03 17:34] LABS: AGAP 12; ALBUMIN 4.3 g/dL (3.5-5.0); ALKALINE PHOSPHATASE 104 U/L (32-122); BUN 17 mg/dL (8-22); CALCIUM 9.6 mg/dL (8.8-10.2); CHLORIDE 104 mmol/L (98-107); CK PROFILE 128 U/L (24-204); COSMO 278; CREATININE 1.1 mg/dL (0.7-1.2); ESTIMATED GFR > 60; GLUCOSE 118 mg/dL (70-104); GOT 18 U/L (10-34); GPT 20 U/L (10-44); POTASSIUM 3.6 mmol/L (3.5-5.1); SODIUM 138 mmol/L (136-145); TCO2 22 mmol/L (25-35); TOTAL BILIRUBIN < 0.15 mg/dL (0.20-1.00); TOTAL PROTEIN 6.8 g/dL (6.3-8.3)
[2019-07-03] MEDS ORDERED: ROCEPHIN 1 GM in NS 50 ML IV ONE (18:27)
--- NOTE | 2019-07-03 18:29 | PROVIDER DOCUMENTATION ---
This chart was entered by Yolanda Hanna Scribe, acting as scribe for Pete Meredith MD. HPI-Respiratory General - General Chief Complaint: Shortness of Breath Stated Complaint: SOB/COPD/CHEST PAINS Time Seen by Provider: 07/03/19 16:25 Source: patient Allergies/Adverse Reactions: Patient Allergies Allergy/AdvReac Type Severity Reaction Status Date / Time Latex, Natural Rubber Allergy RASH Verified 06/10/19 10:20 shrimp Allergy HIVES Verified 06/10/19 10:20 wool Allergy HIVES Verified 06/10/19 10:20 Home Medications: Home Medication List Medication Instructions Recorded Confirmed Last Taken Type Amlodipine Besylate 10 mg PO DAILY 04/18/16 07/03/19 07/21/17 History 10 MG Finasteride [Proscar] 5 mg PO DAILY #30 tablet 05/06/16 07/03/19 07/21/17 Rx 5 MG Tamsulosin [Flomax] 0.4 mg PO QHS #30 capsule 05/06/16 07/03/19 07/21/17 Rx 0.4 MG Albuterol Sulfate [Ventolin Hfa] 1 puff IH BID 10/04/16 07/03/19 07/21/17 History 1 PUFF Cholecalciferol (Vit D3) [Vitamin 1 tab PO DAILY 10/04/16 07/03/19 07/21/17 History D3] 1 TAB Montelukast Sodium [Singulair] 10 mg PO DAILY 10/04/16 07/03/19 07/21/17 History 10 MG Tiotropium [place] Inhaler 18 mcg IH DAILY 10/04/16 07/03/19 07/21/17 History [Spiriva] 18 MCG Acetaminophen with Codeine 1 ea PO Q8H PRN PRN #15 tab 03/03/18 07/03/19 Unknown Rx [Tylenol with Codeine #3] Budesonide/Formoterol Fumarate 10.2 gm IH BID #1 hfa.aer.ad 05/31/18 07/03/19 Unknown Rx [Symbicort 160-4.5 Mcg Inhaler] Gabapentin 300 mg PO HS 06/10/19 07/03/19 Unknown History - History of Present Illness-Resp Nature of Presenting Problem: 63 yobm presents to the ed with sob, productive cough, wheezing and nasal discharge yellow in color. pt sts has hx of copd and asthma and sts this onset has been present for 3 days. pt has O2 sat of 88% on RA on exam Quality of Pain: reports: fullness Severity in ED: reports: mild, moderate Onset/Duration: reports: 3 days ago Timing: reports: still present, intermittent Context: reports: recent URI Cough Quality/Degree: reports: moderate, productive cough (yellow) Episode Frequency: frequent episodes Current Respiratory Medication Therapy: Initiated see nurses note Modifying Factors: improves with: oxygen. worse with: exertion, coughing Associated Symptoms: reports: cough, fever/chills (subjective), nasal drainage, shortness of breath, wheezing. denies: chest pain/soreness, dizziness Similar Symptoms Previously?: Yes (hx of copd and asthma) Recently seen or treated by another doctor?: No Review of Systems - Adult - REVIEW OF SYSTEMS - ADULT Constitutional: reports: see HPI, chills, fever Eyes: reports: no symptoms reported Ears, Nose, Mouth & Throat: reports: see HPI, other (runny nose) Cardiovascular: denies: chest pain, palpitations Respiratory: reports: see HPI, cough, dyspnea on exertion, shortness of breath, wheezing Gastrointestinal: denies: abdominal pain, diarrhea, nausea, vomiting Genitourinary: reports: no symptoms reported Musculoskeletal: denies: back pain, neck pain Integumentary: reports: no symptoms reported Neurological: denies: dizziness/vertigo, headache/migraines Psychiatric: reports: no symptoms reported Endocrine: reports: no symptoms reported Hematologic/Lymphatic: reports: no symptoms reported Allergic/Immunologic: reports: no symptoms reported All Other Systems: Reviewed and Negative Past History - Adult - PAST MEDICAL HISTORY-ADULT Review of Records: reports: Old Records Reviewed, Nursing Assessment Review, Medications Reviewed, Social history reviewed & non-contributory. Major Childhood Illnesses: reports: denies history Cardiovascular: reports: HTN, hyperlipidemia Respiratory: reports: asthma, COPD Gastrointestinal: reports: cancer (prostate/colon), GERD Genitourinary: reports: other (enlarged prostate) Musculoskeletal: reports: denies history Hand Dominance: Right Handed Neurological: reports: denies history Psychiatric: reports: denies history Endocrine/Immune: reports: denies history Other Conditions: reports: denies history - PRIOR SURGERIES/PROCEDURES Surgical/Procedure History: reports: other (TURB/R elbow) - IMMUNIZATION STATUS Childhood Immunizations: See Nurse Assessment Flu Vaccine: See Nurse Assessment - FAMILY HISTORY Family History: reviewed, not pertinent - SOCIAL HISTORY Smoking: quit less than 1 year Substance Use: alcohol Alcohol Use Frequency: occasionally Number of drinks per typical drinking period:: 2 drinks Living Situation: family Physical Exam-General - PHYSICAL EXAM-ADULT Initial Vital Signs Reviewed: Yes - CONSTITUTIONAL General Appearance: alert, mild distress, obese - EYES Eyes: PERRL/EOMI, pink conjunctivae - HEAD, EARS, NOSE, MOUTH & THROAT HENMT: moist mucous membranes, normal ENT inspection, other (nasal discharge). negative: pharyngeal erythema, tonsillar exudate - NECK Neck: non-tender, full range of motion, supple, normal inspection - RESPIRATORY Respiratory: chest non-tender, respiratory distress, wheezing, increased rate (22), other (87% on RA with productive cough-yellow). negative: crackles, rales, rhonchi - CARDIOVASCULAR Cardiovascular: normal peripheral pulses, regular rate, rhythm - CHEST (BREASTS) Chest/Breast: deferred - GASTROINTESTINAL (ABDOMEN) Abdominal Exam: normal bowel sounds, non tender, soft - GENITOURINARY Male Genitalia: deferred Rectal Exam: deferred Hemoccult Exam: deferred - MUSCULOSKELETAL Back Exam: normal inspection, no CVA tenderness, no vertebral tenderness Extremity: normal range of motion, non-tender, normal gait, normal inspection - SKIN Integumentary: normal color, normal turgor, warm/dry - NEUROLOGIC Neurologic: grossly normal - PSYCHIATRIC Psych/Mental Status: normal mood/affect, normal thought content, normal thought process, oriented x 3 Progress - PLAN OF CARE/RESULTS Progress/Plan/Lab Results: Vital Signs - 8 hr 07/03/19 16:23 07/03/19 16:49 07/03/19 17:01 Temperature 99.0 F Pulse Rate 92 H 94 H 85 Respiratory Rate 22 25 H 22 Blood Pressure 121/87 152/95 O2 Sat by Pulse Oximetry 87 L 93 L 94 L 07/03/19 17:08 07/03/19 17:48 Temperature Pulse Rate 82 75 Respiratory Rate 19 21 Blood Pressure 152/95 157/88 O2 Sat by Pulse Oximetry 95 94 L Laboratory Results - last 24 hr 07/03/19 07/03/19 07/03/19 16:30 16:49 16:49 WBC 6.42 RBC 4.79 Hgb 13.2 L Hct 40.4 L MCV 84.3 MCH 27.6 MCHC 32.7 L RDW Std Deviation 13.9 Plt Count 285 MPV 10.3 Immature Gran % (Auto) 0.2 Neut % (Auto) 57.7 Lymph % (Auto) 28.0 Jack % (Auto) 7.2 Eos % (Auto) 6.4 Baso % (Auto) 0.5 Immature Gran # (Auto) 0.01 Neut # (Auto) 3.71 Lymph # (Auto) 1.80 Jack # (Auto) 0.46 Eos # (Auto) 0.41 Baso # (Auto) 0.03 PT INR PTT (Actin FS) Specimen Type ARTERIAL Sample Site R RADIAL pH 7.47 H pCO2 34 L pO2 51 L HCO3 25.8 Base Excess 1.5 Oxyhemoglobin 87.9 L* ABG O2 Sat (Calculated) 17.3 ABG O2 Saturation 91.8 L ABG Carboxyhemoglobin 2.90 H ABG Methemoglobin 1.3 Eduardo Test YES A-a O2 Difference 106.0 Total Hemoglobin 14.0 Lactate 0.90 Liter Flow 2.0 Blood Gas Modality CANNULA FiO2 % 28.0 Sodium 138 Potassium 3.6 Chloride 104 Carbon Dioxide 22 L Anion Gap 12 BUN 17 Creatinine 1.1 Estimated GFR/1.73 m2 > 60 BUN/Creatinine Ratio 15 Glucose 118 H Calculated Osmolality 278 Calcium 9.6 Total Bilirubin < 0.15 L AST 18 ALT 20 Alkaline Phosphatase 104 Creatine Kinase 128 Troponin T Hwf-O-Mtcpgomynfv Pept Total Protein 6.8 Albumin 4.3 Globulin 3.0 Albumin/Globulin Ratio 2.0 07/03/19 07/03/19 07/03/19 16:49 16:49 16:49 WBC RBC Hgb Hct MCV MCH MCHC RDW Std Deviation Plt Count MPV Immature Gran % (Auto) Neut % (Auto) Lymph % (Auto) Jack % (Auto) Eos % (Auto) Baso % (Auto) Immature Gran # (Auto) Neut # (Auto) Lymph # (Auto) Jack # (Auto) Eos # (Auto) Baso # (Auto) PT 12.4 INR 0.88 PTT (Actin FS) 33.2 Specimen Type Sample Site pH pCO2 pO2 HCO3 Base Excess Oxyhemoglobin ABG O2 Sat (Calculated) ABG O2 Saturation ABG Carboxyhemoglobin ABG Methemoglobin Eduardo Test A-a O2 Difference Total Hemoglobin Lactate Liter Flow Blood Gas Modality FiO2 % Sodium Potassium Chloride Carbon Dioxide Anion Gap BUN Creatinine Estimated GFR/1.73 m2 BUN/Creatinine Ratio Glucose Calculated Osmolality Calcium Total Bilirubin AST ALT Alkaline Phosphatase Creatine Kinase Troponin T < 0.010 Wga-D-Rkqkbdulodv Pept 99 Total Protein Albumin Globulin Albumin/Globulin Ratio Orders Category Date Time Status Admit - [facility] Routine AdmDCTranf 07/03/19 18:24 Active Cardiac Monitoring DIRECTED Care 07/03/19 16:31 Active Oxygen Therapy- ED Nursing DIRECTED Care 07/03/19 16:31 Active Saline Loc NOW Care 07/03/19 16:31 Active CHEST-2 VIEWS [RAD] Stat Exams 07/03/19 16:31 Completed ABG [RESP] Routine Lab 07/03/19 16:30 Completed BLOOD CULTURE [BLDCUL] Stat Lab 07/03/19 18:08 Ordered CBC WITH ELECTRONIC DIFF [HEME] Stat Lab 07/03/19 16:49 Completed CK PROFILE [SP CHEM] Stat Lab 07/03/19 16:49 Completed COMPREHENSIVE METABOLIC PANEL [CHEM] Stat Lab 07/03/19 16:49 Completed PRO B-NATRIURETIC PEPTIDE Stat Lab 07/03/19 16:49 Completed PROTIME WITH INR [COAG] Stat Lab 07/03/19 16:49 Completed PTT [COAG] Stat Lab 07/03/19 16:49 Completed SPUTUM CULTURE WITH GRAM STAIN [RM] Routine Lab 07/03/19 16:52 Received TROPONIN T Stat Lab 07/03/19 16:49 Completed Albuterol 2.5MG/Ipratrop 0.5MG [Duoneb (A & A)] Med 07/03/19 16:34 Discontinued 3 ml INH NOW ONE Albuterol 2.5MG/Ipratrop 0.5MG [Duoneb (A & A)] Med 07/03/19 18:26 Discontinued 3 ml INH NOW ONE Aspirin Med 07/03/19 16:31 Discontinued 325 mg PO NOW ONE CefTRIAXONE [Rocephin] 1 gm Med 07/03/19 18:27 Active 0.9% Sodium Chloride Inj [Ns] 50 ml IV NOW Aerosol Treatments Routine Oth 07/03/19 16:34 Active Aerosol Treatments Routine Oth 07/03/19 18:26 Active Aerosol Treatments Stat Oth 07/03/19 16:34 Active Aerosol Treatments Stat Oth 07/03/19 18:26 Active CP/SOB/Palp >45 yrs of Age Stat Oth 07/03/19 16:31 Ordered EKG [EKG] Stat Ther 07/03/19 16:31 Draft Transfer/Admit Order [TRANSFER] Routine Transfer 07/03/19 18:23 Ordered Result Diagrams: 07/03/19 16:49 07/03/19 16:49 - REASSESSMENT Reassessment #1 Time Reassessed: 17:20 Status: unchanged - EKG 1 Time of EKG reading by physician:: 16:35 EKG Read and Signed by:: Pete Meredith EKG Interpretation (*Must complete 3 of following elements*): Abnormal Rate: 82 Rhythm: nsr Arverne: normal QRS: other (possible left atrial enlargement) MO Interval: normal Comments: nonspecific ST and t wave abnormality - XRAY 1 XRAY: Bilateral XRAY Study: Chest Impression: See EMR Report (EXAM: CHEST-2 VIEWS - 07/03/2019 HISTORY: sob TECHNIQUE: Chest two views COMPARISON: 06/13/2019 portable chest FINDINGS: Heart size appears within normal limits. There is tortuosity of the thoracic aorta. There is mild infiltrate at the posterior base of the chest visible on the lateral view. The remainder the lungs appear clear. There is no pleural effusion or pneumothorax identified. IMPRESSION: Mild infiltrate consistent with pneumonia at posterior base of chest. Electronically signed by Joaquin Swanson 07/03/2019 5:25 PM 07/03/19 1725 Interpreting Physician: Joaquin Swanson MD Dictated Date/Time: 07/03/19 1722 cc: Pete Meredith MD; None,PCP) - CONSULTS/PCP/HOSPITALIST Notification #1 *Consult/PCP/Hospitalist*: hospitalist dr ramachandran Reason/Comments: phone consult Consult Disposition: Admit Departure - Departure Date of Disposition Decision: 07/03/19 Time of Disposition Decision: 18:28 DIAGNOSIS: COPD exacerbation PNA (pneumonia) Qualifiers: Pneumonia type: due to unspecified organism Laterality: unspecified laterality Lung location: unspecified part of lung Qualified Code(s): J18.9 - Pneumonia, unspecified organism Disposition: ADMITTED INPATIENT 09 Certified Medical Emergency: Emergent Condition: Stable Referrals and Follow-Ups: None,PCP [Primary Care Provider] - - Critical Care Note This patient required my direct & personal management of CC.: Yes Total Time (mins): 36 Critical Care Statement: This patient required my direct personal management to treat or rule out processes, the absence of which, could potentiallly result in sudden, clinically significant life or limb threatening deterioration. Attestation - Physician/ BERRY Attestation Patient care was provided by Advanced Practice Provider:: No The physician spent face to face time with patient:: Yes Advanced Practice Provider documentation review:: Supervising physician onsite and consulted in the evaluation and care of this patient. The physician did have a face to face encounter with the patient. This chart was documented by the indicated scribe, (Yolanda Hanna Scribe) and accurately reflects the services I performed and decisions made by me, Pete Meredith MD, as attested by the provider's signature.
[2019-07-04] MEDS: DUONEB (A & A) INH PRN (00:10)
[2019-07-04] MEDS ORDERED: TYLENOL WITH CODEINE #3 PO PRN (08:05)
[2019-07-04] MEDS: DUONEB (A & A) INH SCH ×5 (08:14→23:16)
[2019-07-04] MEDS ORDERED: VENTOLIN HFA INH SCH (09:00)
[2019-07-04] MEDS: SOLU-MEDROL IV SCH ×2 (09:34→16:17)
[2019-07-04] MEDS: SINGULAIR PO SCH (09:34)
[2019-07-04] MEDS: NORVASC PO SCH (09:34)
[2019-07-04] MEDS: VITAMIN D PO SCH (09:34)
[2019-07-04] MEDS: ZITHROMAX 500 MG/NS 500 MG/250 ML IVPB IV SCH (09:34)
[2019-07-04] MEDS: PROSCAR PO SCH (09:34)
[2019-07-04] MEDS ORDERED: DUONEB (A & A) INH SCH (11:30)
--- NOTE | 2019-07-04 12:15 | HISTORY AND PHYSICAL ---
PRIMARY CARE PHYSICIAN: None. CHIEF COMPLAINT: Shortness of breath, productive cough, and wheezing for 3 days that progressively worsened. HISTORY OF PRESENTING ILLNESS: This is a 63-year-old male who presents to [facility] ER with complaints of shortness of breath, productive cough, and wheezing over the past 3 days that progressively worsened. When he arrived to the emergency room, he had an O2 saturation of 87% on room air, came up to 93% on 2 L, and now saturating 99% on 2 L. His laboratory data was fairly unremarkable. His chest x-ray though showed a mild infiltrate consistent with pneumonia at posterior base of chest, so he was admitted for further evaluation and treatment. PAST MEDICAL HISTORY: Hypertension, hyperlipidemia, asthma, COPD, and prostate and colon cancer. PAST SURGICAL HISTORY: TURP and a right elbow surgery. FAMILY HISTORY: Hypertension and COPD in both parents. SOCIAL HISTORY: Currently lives alone, is a former smoker, quit in 2008. Denies any alcohol or illicit drug use. ALLERGIES: Latex, natural rubber, shrimp, and wool. HOME MEDICATIONS: He takes Tylenol with codeine #3 one p.o. every 8 hours p.r.n., Ventolin 1 puff inhalation b.i.d., Norvasc 10 mg p.o. daily, Symbicort 160/4.5 mcg inhaler b.i.d., vitamin D3 one tablet p.o. daily, finasteride 5 mg p.o. daily, gabapentin 300 mg p.o. at bedtime, Singulair 10 mg p.o. daily, Flomax 0.4 mg p.o. at bedtime, and Spiriva 18 mcg inhalation daily. IMAGING AND LABORATORY DATA: Laboratory data showed a white blood cell count of 6.42, hemoglobin 13.2, hematocrit 40.4, platelets 285,000. PT and INR of 12.5 and 0.88. ABG showed a pH of 7.47, pCO2 of 34, PO2 of 51, bicarbonate 25.8, oxyhemoglobin of 87.9, and this was on 2 L via nasal cannula. Sodium 138, potassium 3.6, chloride 104, CO2 of 22, BUN of 17, creatinine 1.1, glucose 118. Cardiac enzymes were negative. ProBNP of 99. Chest x-ray showed mild infiltrate consistent with pneumonia at the posterior base of the chest. EKG showed normal sinus rhythm at 82. REVIEW OF SYSTEMS: He denied any fever, chills, blurred vision, dizziness, chest pain. He has had a productive cough, shortness of breath, wheezing. Denied any abdominal pain, constipation, diarrhea, burning or hurting with urination. PHYSICAL EXAMINATION: VITAL SIGNS: On arrival, he had a temperature of 99 degrees, pulse 92, respirations 22, blood pressure 121/87, saturating 87% on room air, currently saturating 94% on 2 L. GENERAL: This is a 63-year-old male who is sitting up in the bed and answers questions appropriately. HEENT: Normocephalic, atraumatic. Normal ENT inspection. Oropharynx and nares are clear. Eyes: Pupils are equal, round, and reactive to light and accommodation. Extraocular movements are intact. NECK: Normal inspection. Normal range of motion. LUNGS: Wheezing throughout entire posterior lung murdock. HEART: Regular rate and rhythm. No murmurs, rubs, or gallops. ABDOMEN: Soft, nontender, nondistended. Bowel sounds are present x4 quadrants. MUSCULOSKELETAL: He has 5/5 strength x4 extremities. NEUROLOGICAL: The cranial nerves II through XII appear grossly intact. ASSESSMENT: 1. Pneumonia. 2. Hypoxemia. 3. Acute chronic obstructive pulmonary disease exacerbation. 4. Hypertension, history of. PLAN: He was admitted to the medical unit, placed on telemetry, regular diet. Sputum culture and blood cultures are pending. He is on DuoNeb every 4 hours routinely and every 2 hours p.r.n., Solu-Medrol 60 mg IV every 8 hours, and will wean as he improves, Rocephin 1 gram IV every 24 hours, azithromycin 500 IV every 24 hours. Continue his home medications as previously identified, and recheck a CBC and BMP in the a.m. Further orders after seen by attending. Dictated by IMER Becker for Jesus Alberto Lee MD cc: IMER Becker MD
[2019-07-04] MEDS: SPIRIVA INH SCH (15:57)
[2019-07-04] MEDS: SYMBICORT 160/4.5 MICROGM INHALER INH SCH ×2 (15:58→20:26)
--- NOTE | 2019-07-04 16:20 | HISTORY AND PHYSICAL ---
ADDENDUM TO HISTORY AND PHYSICAL: The patient is doing okay. He came in for shortness of breath and cough, wheezing. He does have a history of asthma and COPD. He was a former smoker. In any case, patient is better. He does have pneumonia. We will put on empiric antibiotics, steroids, breathing treatments and follow clinically. This is a [id number] encounter note with Elyse Maynard. cc: Jesus Alberto Lee MD
[2019-07-04] MEDS: ROCEPHIN 1 GM in NS 50 ML IV SCH (17:28)
[2019-07-04] MEDS: NEURONTIN PO SCH (20:33)
[2019-07-04] MEDS: FLOMAX PO SCH (20:33)
[2019-07-05] MEDS: SOLU-MEDROL IV SCH ×3 (00:04→17:28)
[2019-07-05] MEDS: LOVENOX SUBQ SCH (05:12)
[2019-07-05 06:10] LABS: AGAP 12; BUN 22 mg/dL (8-22); CALCIUM 9.7 mg/dL (8.8-10.2); CHLORIDE 105 mmol/L (98-107); COSMO 281; CREATININE 1.1 mg/dL (0.7-1.2); ESTIMATED GFR > 60; GLUCOSE 174 mg/dL (70-104); POTASSIUM 3.9 mmol/L (3.5-5.1); SODIUM 137 mmol/L (136-145); TCO2 21 mmol/L (25-35)
[2019-07-05 06:14] LABS: EOS# 0.01 X1000 (0.0-0.7); EOS% 0.1 % (0.0-10.0); HEMOGLOBIN 12.8 g/dL (14.0-18.0); IMM GRAN# 0.01 X1000 (0.0-0.04); IMM GRAN% 0.1 % (0.0-0.5); LYMPH# 0.58 X1000 (1.2-3.4); LYMPH% 5.3 % (20.5-51.1); MCH 27.2 PG (27-31); MCHC 32.8 g/dL (33-37); MONO% 0.9 % (1.7-9.3); MPV 10.8 FL (7.4-10.4); NEUT# 10.23 X1000 (1.4-6.5); NEUT% 93.6 % (42.2-75.2); PLT 295 X1000 (130-400); RDW 13.4 % (11.5-14.5); WBC 10.93 X1000 (4.8-10.8)
[2019-07-05] MEDS: SPIRIVA INH SCH (07:36)
[2019-07-05] MEDS: DUONEB (A & A) INH SCH ×5 (07:36→22:37)
[2019-07-05] MEDS: SYMBICORT 160/4.5 MICROGM INHALER INH SCH ×2 (07:37→19:49)
[2019-07-05 07:55] LABS: BANDS 2 % (0-1); LYMPHS 14 % (21-51); MONO 1 % (1-9); NRBC 1 % (0-0); SEGS 83 % (42-75)
[2019-07-05] MEDS: ZITHROMAX 500 MG/NS 500 MG/250 ML IVPB IV SCH (10:31)
[2019-07-05] MEDS: PROSCAR PO SCH (10:32)
[2019-07-05] MEDS: NORVASC PO SCH (10:32)
[2019-07-05] MEDS: SINGULAIR PO SCH (10:32)
[2019-07-05] MEDS: VITAMIN D PO SCH (10:32)
--- NOTE | 2019-07-05 15:54 | PROGRESS NOTE ---
DATE: 07/05/2019 SUBJECTIVE: Patient has no major complaints. OBJECTIVE: Blood pressure 129/63, heart rate 92, respiratory rate 20, and temperature 98 degrees, and 100% on 2 L.Cardiovascular: Regular rate and rhythm. Pulmonary: Bilateral breath sounds clear to auscultation. GI: Soft, nontender, and nondistended. Bowel sounds are positive. LABORATORY DATA: White count 10.9, hemoglobin and hematocrit 12 and 39, and platelets 295,000, 83% segs, 2% bands. Basic was normal. PROBLEM LIST: 1. Pneumonia. We will continue empiric antibiotics, breathing treatments and follow. 2. Acute chronic obstructive pulmonary disease exacerbation. We will continue breathing treatments, steroids, and nebulizers. DISPOSITION: Anticipate discharge soon possibly in the next 24 hours. We will pursue a home O2 evaluation. I am ordering further labs as I do not think we are tracking very much at this point. cc: Jesus Alberto Lee MD
[2019-07-05] MEDS: ROCEPHIN 1 GM in NS 50 ML IV SCH (17:28)
[2019-07-05] MEDS: FLOMAX PO SCH (20:11)
[2019-07-05] MEDS: NEURONTIN PO SCH (20:12)
[2019-07-05] MEDS: DUONEB (A & A) INH PRN (22:37)
[2019-07-06] MEDS: SOLU-MEDROL IV SCH ×3 (00:13→15:28)
[2019-07-06] MEDS: LOVENOX SUBQ SCH (06:13)
[2019-07-06] MEDS: DUONEB (A & A) INH SCH ×5 (07:29→23:00)
[2019-07-06] MEDS: SYMBICORT 160/4.5 MICROGM INHALER INH SCH ×2 (07:29→19:41)
[2019-07-06] MEDS: SPIRIVA INH SCH (07:30)
[2019-07-06] MEDS: NORVASC PO SCH (08:09)
[2019-07-06] MEDS: PROSCAR PO SCH (08:09)
[2019-07-06] MEDS: SINGULAIR PO SCH (08:09)
[2019-07-06] MEDS: ZITHROMAX PO SCH (08:09)
[2019-07-06] MEDS: VITAMIN D PO SCH (08:09)
[2019-07-06] MEDS: ROCEPHIN 1 GM in NS 50 ML IV SCH (17:24)
--- NOTE | 2019-07-06 18:12 | PROGRESS NOTE ---
DATE: 07/06/2019 SUBJECTIVE: Patient notes he is feeling a little bit better but still does not feel back to normal. Still having shortness of breath, cough, congestion. Denies any fevers or chills. Denies chest pain, palpitations. OBJECTIVE: Vital signs: Temperature 98.3, pulse 86, respiratory rate 18, BP 140/76. General: Patient is pleasant. He is in mild respiratory distress. He is on oxygen. He is not typically on oxygen at home. HEENT: Normocephalic. Neck: Supple. Cardiovascular: Regular rate. Chest: Decreased but equal breath sounds. Minimal wheezing. No crackles. Abdomen: Soft, nondistended, nontender. Extremities: Moves all extremities. Neurologic: No changes. ASSESSMENT: 1. Pneumonia. 2. Chronic obstructive pulmonary disease with exacerbation. 3. Hypoxic respiratory failure. 4. Hypertension. PLAN: We are going to continue patient in the hospital. We are going to decrease his Solu- Medrol, hopefully. We will continue to follow. Continue Rocephin, azithromycin, and breathing treatments. We will attempt to wean oxygen as tolerated. cc: Cb Gruber MD
[2019-07-06] MEDS: FLOMAX PO SCH (21:35)
[2019-07-06] MEDS: NEURONTIN PO SCH (21:36)
[2019-07-07] MEDS: SOLU-MEDROL IV SCH ×3 (01:00→15:46)
[2019-07-07] MEDS: LOVENOX SUBQ SCH (05:53)
[2019-07-07] MEDS: DUONEB (A & A) INH SCH ×4 (07:50→19:40)
[2019-07-07] MEDS: SPIRIVA INH SCH (07:50)
[2019-07-07] MEDS: SYMBICORT 160/4.5 MICROGM INHALER INH SCH ×2 (07:50→19:40)
[2019-07-07] MEDS: NORVASC PO SCH (08:33)
[2019-07-07] MEDS: VITAMIN D PO SCH (08:33)
[2019-07-07] MEDS: PROSCAR PO SCH (08:33)
[2019-07-07] MEDS: ZITHROMAX PO SCH (08:33)
[2019-07-07] MEDS: SINGULAIR PO SCH (08:33)
[2019-07-07] MEDS: ROCEPHIN 1 GM in NS 50 ML IV SCH (17:38)
--- NOTE | 2019-07-07 21:02 | PROGRESS NOTE ---
DATE: 07/07/2019 SUBJECTIVE: Patient notes that he is breathing better, but still very short of breath, still having dyspnea on exertion, still wheezing, still difficulty ambulating to the restroom. PHYSICAL EXAMINATION: Vital Signs: Reviewed. Temperature 98 degrees, pulse 74, respiratory rate 20, BP 134/74. General: The patient is in current mild respiratory distress. He is very pleasant. HEENT: Normocephalic. Neck: Supple. Cardiovascular: Regular rate. Chest: Decreased breath sounds. Minimal wheezing. Equal bilaterally. Positive rhonchi. Abdomen: Soft, obese, nondistended. Extremities: Moves all extremities. No edema. Neurologic: No focal changes. He is awake, alert, oriented x3. ASSESSMENT: 1. Pneumonia. 2. Chronic obstructive pulmonary disease with exacerbation. 3. Hypertension. 4. Hypoxic respiratory failure. PLAN: We are going to continue patient in the hospital, decrease Solu-Medrol to 40 IV q.12., continue Rocephin IV, azithromycin p.o., and will follow. Hopefully, his symptoms will improve and can discharge [*] cc: Cb Gruber MD
[2019-07-07] MEDS: FLOMAX PO SCH (21:12)
[2019-07-07] MEDS: NEURONTIN PO SCH (21:12)
[2019-07-08] MEDS: DUONEB (A & A) INH SCH ×6 (00:36→23:01)
[2019-07-08] MEDS: SOLU-MEDROL IV SCH ×3 (02:07→16:55)
[2019-07-08] MEDS: LOVENOX SUBQ SCH (06:36)
[2019-07-08] MEDS: ZITHROMAX PO SCH (08:06)
[2019-07-08] MEDS: SINGULAIR PO SCH (08:06)
[2019-07-08] MEDS: PROSCAR PO SCH (08:07)
[2019-07-08] MEDS: NORVASC PO SCH (08:07)
[2019-07-08] MEDS: VITAMIN D PO SCH (08:07)
[2019-07-08] MEDS: SYMBICORT 160/4.5 MICROGM INHALER INH SCH ×2 (08:18→19:33)
[2019-07-08] MEDS: SPIRIVA INH SCH (08:18)
[2019-07-08] MEDS: ROCEPHIN 1 GM in NS 50 ML IV SCH (17:00)
[2019-07-08] MEDS: FLOMAX PO SCH (20:42)
[2019-07-08] MEDS: NEURONTIN PO SCH (20:42)
--- NOTE | 2019-07-08 22:14 | PROGRESS NOTE ---
DATE: 07/08/2019 SUBJECTIVE: Patient notes overall he is feeling better, still having some shortness of breath, still very concerned about going home. Still currently on oxygen. He does not have oxygen at home. OBJECTIVE: Vital Signs: Reviewed. Temperature 98 degrees, pulse 70, respiratory rate 18, BP 143/82. General: Patient is awake. Currently he is in mild respiratory distress. HEENT: Normocephalic. Neck: Supple. Cardiovascular: Regular rate. Chest: Decreased but equal. No current wheezing. Abdomen: Soft, nondistended. Extremities: Moves all extremities. Neurologic: No changes. ASSESSMENT: 1. Acute hypoxic respiratory failure. 2. Chronic obstructive pulmonary disease with exacerbation. 3. Pneumonia. 4. Hypertension. PLAN: We are going to continue to attempt to wean Solu-Medrol. Hopefully his symptoms will continue to improve, and he can discharge home soon. cc: Cb Gruber MD
[2019-07-09] MEDS: SOLU-MEDROL IV SCH ×3 (00:13→23:14)
[2019-07-09] MEDS: LOVENOX SUBQ SCH (05:10)
[2019-07-09] MEDS: DUONEB (A & A) INH SCH ×5 (07:04→23:18)
[2019-07-09] MEDS: SYMBICORT 160/4.5 MICROGM INHALER INH SCH ×2 (07:04→19:27)
[2019-07-09] MEDS: SPIRIVA INH SCH (07:05)
[2019-07-09] MEDS: SINGULAIR PO SCH (09:16)
[2019-07-09] MEDS: VITAMIN D PO SCH (09:17)
[2019-07-09] MEDS: ZITHROMAX PO SCH (09:17)
[2019-07-09] MEDS: NORVASC PO SCH (09:17)
[2019-07-09] MEDS: PROSCAR PO SCH (09:17)
[2019-07-09] MEDS: ROCEPHIN 1 GM in NS 50 ML IV SCH (17:17)
--- NOTE | 2019-07-09 17:21 | PROGRESS NOTE ---
DATE: 07/09/2019 SUBJECTIVE: Patient notes that his breathing is starting to improve, although states he is still very concerned and worried about going home. Denies any fevers or chills. OBJECTIVE: Vital signs: Temperature 98.5 degrees, pulse 70, respiratory rate 18, BP 143/82. General: Patient is awake, currently in no respiratory distress. HEENT: Normocephalic. Neck: Supple. Cardiovascular: Regular rate. Chest: Minimal wheezing, much better air movement than he has had previously. Abdomen: Soft, nondistended. Extremities: Moves all extremities. ASSESSMENT: 1. Chronic obstructive pulmonary disease with exacerbation. 2. Pneumonia. 3. Hypoxic respiratory failure appears resolved. 4. Hypertension. PLAN: We are going to decrease Solu-Medrol 1 more time today to 40 q.12. If he tolerates this, hopefully can be discharged home tomorrow. We will continue antibiotics, breathing treatments. cc: Cb Gruber MD
[2019-07-09] MEDS: FLOMAX PO SCH (20:25)
[2019-07-09] MEDS: NEURONTIN PO SCH (20:25)
[2019-07-10] MEDS: LOVENOX SUBQ SCH (05:43)
[2019-07-10 05:53] LABS: HEMATOCRIT 37.3 % (42.0-52.0); HEMOGLOBIN 11.9 g/dL (14.0-18.0); MCH 26.9 PG (27-31); MCHC 31.9 g/dL (33-37); MCV 84.2 FL (81-99); MPV 10.7 FL (7.4-10.4); RBC 4.43 XMIL (4.7-6.1); RDW 13.7 % (11.5-14.5); WBC 17.52 X1000 (4.8-10.8)
[2019-07-10 06:47] LABS: AGAP 11; ALBUMIN 3.7 g/dL (3.5-5.0); ALKALINE PHOSPHATASE 96 U/L (32-122); BUN 23 mg/dL (8-22); CALCIUM 9.5 mg/dL (8.8-10.2); CHLORIDE 99 mmol/L (98-107); COSMO 282; CREATININE 0.9 mg/dL (0.7-1.2); ESTIMATED GFR > 60; GLUCOSE 240 mg/dL (70-104); GOT 12 U/L (10-34); GPT 42 U/L (10-44); MAGNESIUM 2.1 mg/dL (1.5-2.7); POTASSIUM 4.3 mmol/L (3.5-5.1); SODIUM 135 mmol/L (136-145); TCO2 25 mmol/L (25-35); TOTAL BILIRUBIN < 0.15 mg/dL (0.20-1.00); TOTAL PROTEIN 6.3 g/dL (6.3-8.3)
[2019-07-10] MEDS: SPIRIVA INH SCH (07:18)
[2019-07-10] MEDS: SYMBICORT 160/4.5 MICROGM INHALER INH SCH (07:18)
[2019-07-10] MEDS: DUONEB (A & A) INH SCH ×2 (07:18→10:46)
[2019-07-10 07:43] VITALS: BP 141/82
--- NOTE | 2019-07-10 09:14 | Diag Imaging Result Doc PS360 ---
CHEST-2 VIEWS - 07/10/2019 INDICATION: hypoxia COMPARISON: 07/03/2019 FINDINGS: Lung volumes are much lower. There is some trace linear atelectasis in the lung bases. Heart size is normal. No pneumothorax or pleural effusion. IMPRESSION: Nonspecific findings. Electronically signed by Rob Welsh 07/10/2019 9:12 AM
[2019-07-10] MEDS: ZITHROMAX PO SCH (09:54)
[2019-07-10] MEDS: SINGULAIR PO SCH (09:54)
[2019-07-10] MEDS: NORVASC PO SCH (09:54)
[2019-07-10] MEDS: PROSCAR PO SCH (09:54)
[2019-07-10] MEDS: VITAMIN D PO SCH (09:54)
--- NOTE | 2019-07-10 13:46 | PROGRESS NOTE ---
DATE: 07/10/2019 SUBJECTIVE: Patient states he feels a lot better. Still having some cough and congestion, still having some shortness of breath. Denies any fevers. PHYSICAL EXAMINATION: Vital Signs: Reviewed. Temperature 98 degrees, pulse 70, BP 143/82. General: Patient is awake, alert, currently in minimal respiratory distress. He is off oxygen, saturating 95% on room air. HEENT: Normocephalic. Neck: Supple. Cardiovascular: Regular rate. Chest: Clear and nonlabored. Abdomen: Soft. Extremities: Moves all extremities. Neurologic: No changes. ASSESSMENT: 1. Pneumonia. We are going to repeat his chest x-ray. 2. Hypoxic respiratory failure, resolved. 3. Hypertension. 4. Chronic obstructive pulmonary disease. PLAN: We are going to repeat his chest x-ray. Hopefully, this has improved. If he is able to ambulate this afternoon, hopefully we can discharge him home. cc: Cb Gruber MD
--- NOTE | 2019-07-10 20:54 | DISCHARGE SUMMARY ---
ADMISSION DATE: 07/03/2019 DISCHARGE DATE: 07/10/2019 DIAGNOSES: 1. Pneumonia. 2. Hypoxemia. 3. Acute exacerbation chronic obstructive pulmonary disease. 4. Hypertension. DIAGNOSTICS: 1. 07/03/2019 chest x-ray revealed mild infiltrate consistent with pneumonia at posterior base of chest. 2. Chest x-ray 07/10/2019 lung volumes are much lower. There is some linear atelectasis in the lung bases. Heart size is normal. No pneumothorax or pleural effusion. 3. Microbiology. Blood cultures x2 revealed no growth after 5 days. 4. Sputum culture revealed normal jayson. HOSPITAL COURSE: Mr. Velasquez presented to the emergency room complaining shortness of breath and wheezing for 3 days. He was found to have pneumonia for which he was treated with azithromycin and Rocephin. He was also found to be in COPD exacerbation for which he received steroids to taper and DuoNeb q.4 with q.2 hours p.r.n. Thankfully this is improved. He is maintaining O2 saturations 96 to 99 percent on room air, being able to ambulate in his room with less shortness of breath. Blood cultures revealed no growth with sputum culture revealing normal jayson. DISCHARGE PHYSICAL EXAM: Vital Signs: Blood pressure is 141/82 with a heart rate of 76, respirations 14, temperature is 98.4 degrees with room air saturations 96 to 99 percent. Cardiovascular: Regular rate and rhythm. S1 and S2 are appreciated. Pulmonary: Breath sounds are clear with no increased work of breathing noted. Chest rises and falls symmetric respiration. Gastrointestinal: Abdomen soft, nontender, nondistended with bowel sounds in all 4 quadrants. Neurologic: He is alert and oriented x3. Skin is warm and dry. DISCHARGE MEDICATIONS: 1. Medrol Dosepak as directed. 2. Omnicef 300 mg p.o. b.i.d. for 5 days. 3. Zithromax 250 mg p.o. daily for 5 days. 4. Ventolin inhaler 1 puff b.i.d. 5. Spiriva 1 puff daily. 6. Flomax 0.4 mg p.o. at bedtime. 7. Singulair 10 mg p.o. daily. 8. Gabapentin 300 mg p.o. at bedtime. 9. Finasteride 5 mg p.o. daily. 10. Vitamin D3 1000 units p.o. daily. 11. Symbicort 160/4.5 one inhalation b.i.d. 12. Norvasc 10 mg p.o. daily. 13. Tylenol with codeine 1 q.8 hours p.r.n. as prehospitalization. FOLLOWUP: His primary care provider. He needs to call Friday to schedule an appointment to be seen in the next 1 to 2 weeks. [facility] will resume care. He has been instructed to call to be seen sooner or return to the emergency room for any syncope, dizziness, chest pain, palpitations, increasing shortness of breath, productive cough, temperature greater than 101, any progressive PND, orthopnea, for any nausea, vomiting, diarrhea, constipation, black or bloody vomitus or stools, any hematuria, dysuria, frequency, urgency or for any questions or concerns he may have. He is being discharged home in stable condition with family members. TIME SPENT: Greater than 30 minutes. Dictated by IMER Duran for Cb Gruber MD cc: IMER Duran MD
--- NOTE | 2019-07-12 03:52 | DISCHARGE SUMMARY ---
ADMISSION DATE: 07/03/2019 DISCHARGE DATE: 07/10/2019 ADDENDUM: Patient seen and examined by myself. Full note dictated and discussed with nurse practitioner. On discharge, patient is awake, alert, feeling much better. He is having no trouble breathing. Therefore, we will discharge him home. He will continue antibiotics, breathing treatments at home. Discussed with patient [*]. cc: Cb Gruber MD
== END 2019-07-10 12:30 | disposition home health service (06) | DRG 193 ==
LOC: P.ED 16:21 → P.MEDSURG 16:21 → SUATTDRO 19:28 → OBSVTOIN 19:28
PROVIDERS: ATTEND Family Medicine